=== PATIENT | male | born 1995 | race Caucasian/White ===

== ENCOUNTER → 2017-10-14 | Outpatient (CLI) | payer OTHER ==
[~2017-10-14] MED LIST: ACET325; CLARITIN10 MG; DIPH50
== END | disposition home or self-care (01) ==
LOC: LAB EV 09:30
DX: R19.7 Diarrhea, unspecified (principal)
CPT/HCPCS: 87338

== ENCOUNTER 2017-11-19 11:12 | Day surgery (SDC) | payer OTHER ==
[~2017-11-19] VITALS: Ht 182.9 cm; Wt 88.6 kg
[~2017-11-19 11:12] MED LIST changes: -ACET325; -DIPH50
[2017-11-19] MEDS ORDERED: DIPH50 (12:05)
[2017-11-19] MEDS ORDERED: ACET325 (12:05)
== END 2017-11-19 13:23 | disposition home or self-care (01) ==
LOC: ORSCSDS 11:12
PROVIDERS: Internal Medicine Gastroenterology
PROC: 0DBB8ZX Excision of Ileum, Via Natural or Artificial Opening Endoscopic, Diagnostic (ICD-10-PCS; principal; 2017-11-19 12:30)
PROC: 0DBP8ZX Excision of Rectum, Via Natural or Artificial Opening Endoscopic, Diagnostic (ICD-10-PCS; principal; 2017-11-19 12:30)
DX: K62.5 Hemorrhage of anus and rectum (principal); K64.8 Other hemorrhoids; R19.7 Diarrhea, unspecified
CPT/HCPCS: 88305; J2250; J7120

== ENCOUNTER 2017-12-31 07:48 | Day surgery (SDC) | payer OTHER ==
[~2017-12-31] VITALS: Ht 182.9 cm; Wt 88.9 kg
[~2017-12-31 07:48] MED LIST changes: +ACET325; +DIPH50
== END 2017-12-31 09:06 | disposition home or self-care (01) ==
LOC: ORSCSDS 07:48
PROVIDERS: Internal Medicine Gastroenterology
PROC: 0DB68ZX Excision of Stomach, Via Natural or Artificial Opening Endoscopic, Diagnostic (ICD-10-PCS; principal; 2017-12-31 15:30)
PROC: 0DB58ZX Excision of Esophagus, Via Natural or Artificial Opening Endoscopic, Diagnostic (ICD-10-PCS; principal; 2017-12-31 15:30)
PROC: 0DB98ZX Excision of Duodenum, Via Natural or Artificial Opening Endoscopic, Diagnostic (ICD-10-PCS; principal; 2017-12-31 15:30)
DX: K92.1 Melena (principal); R19.7 Diarrhea, unspecified; K29.80 Duodenitis without bleeding; K20.9 Esophagitis, unspecified; K29.70 Gastritis, unspecified, without bleeding; Z79.899 Other long term (current) drug therapy
CPT/HCPCS: 88305; 88312; 88342; J0330; J1980; J2405

== ENCOUNTER → 2018-01-20 | Outpatient (CLI) | payer OTHER | LOC: LAB EV 16:05 → LAB SHORT 16:05 | DX: R30.0 Dysuria (principal) | CPT/HCPCS: 87086 ==

== ENCOUNTER → 2018-02-26 | Outpatient (CLI) | payer OTHER | END | disposition home or self-care (01) | LOC: LAB SHORT 11:45 → LAB EV 11:45 | PROVIDERS: Physician Assistant | DX: Z11.3 Encounter for screening for infections with a predominantly sexual mode of transmission (principal); S31.20XA Unspecified open wound of penis, initial encounter | CPT/HCPCS: 87070; 87205; 87491; 87591 ==